=== PATIENT | male | born 1935 | race Caucasian/White ===

== ENCOUNTER 2019-01-26 09:53 | Day surgery (SDC) | payer OTHER ==
[~2019-01-26] VITALS: Ht 175.3 cm; Wt 88.0 kg
[~2019-01-26 09:53] MED LIST: ceFAZolin SODIUM 2 GM in NS 100 ML IV ONE
[2019-01-26] MEDS ORDERED: IOHEXOL 50 ML IV ONE (11:00)
[2019-01-26] MEDS ORDERED: fentaNYL CITRATE/PF 100 MCG/2 ML AMP IVP ONE (13:00)
[2019-01-26] MEDS ORDERED: SUGAMMADEX SODIUM 200 MG/2 ML VIAL IV ONE (13:00)
[2019-01-26] MEDS ORDERED: MIDAZOLAM HCL 5 MG/5 ML VIAL IVP ONE (13:00)
[2019-01-26] MEDS ORDERED: NS IRRIG SOLN 1000 ML IR ONE (13:00)
[2019-01-26] MEDS ORDERED: CEFAZOLIN 2 GM IVPB PREMIX 50 ML IV ONE (13:00)
[2019-01-26] MEDS ORDERED: fentaNYL CITRATE 250 MCG/5 ML AMP IV ONE (13:00)
[2019-01-26] MEDS ORDERED: LR 1,000 ML IV.SOLN IV ONE (13:00)
[2019-01-26] MEDS ORDERED: SEVOFLURANE 15 MIN GAS INH ONE (13:00)
[2019-01-26] MEDS ORDERED: PROPOFOL 200MG/ 20ML VIAL (DIPRIVAN) IV ONE (13:00)
[2019-01-26] MEDS ORDERED: BUPIVACAINE /EPINEPHRINE/PF 0.5% 30 ML VIAL INJ ONE (13:00)
[2019-01-26] MEDS ORDERED: NS 1000 ML IV.SOLN IV ONE (13:00)
[2019-01-26] MEDS ORDERED: ATROPINE SULFATE 0.4 MG/ML VIAL IVP ONE (13:00)
[2019-01-26] MEDS ORDERED: ROCURONIUM BROMIDE 10 MG/ML (ZEMURON) IV ONE (13:00)
[2019-01-26] MEDS ORDERED: KETOROLAC TROMETHAMINE 30 MG VIAL IVP ONE (13:00)
[2019-01-26] MEDS ORDERED: ONDANSETRON HCL 4 MG/2 ML VIAL IVP ONE (13:00)
[2019-01-26] MEDS ORDERED: DEXAMETHASONE SOD PHOSPHATE 4 MG/ML VIAL IVP ONE (13:00)
[2019-01-26] MEDS ORDERED: LR 1,000 ML IV SCH (14:19)
[2019-01-26] MEDS ORDERED: HYDROmorphone 1 MG INJ. 1 MG/ML AMPUL IVP PRN (14:30)
[2019-01-26] MEDS ORDERED: MEPERIDINE HCL/PF 25 MG/ML DISP.SYRIN IVP PRN (14:30)
[2019-01-26] MEDS ORDERED: HYDROmorphone 2 MG/ML VIAL IVP PRN ×2 (14:30)
[2019-01-26 16:25] VITALS: BP_SYST 114
[2019-01-26] MEDS ORDERED: HYDROcodone/ACETAMIN 5-325 MG TAB (NORCO/ VICODIN) PO PRN (16:30)
[2019-01-26 16:40] VITALS: BP_SYST 125
[2019-01-26] MEDS ORDERED: DORZ10DR9 EACH EYE (17:22)
[2019-01-26] MEDS ORDERED: XALEYE BOTH EYES (17:22)
[2019-01-26] MEDS ORDERED: COMBIGAN BOTH EYES (17:22)
[2019-01-26] MEDS: METOCLOPRAMIDE HCL 10 MG/2 ML VIAL IVP SCH (17:29)
[2019-01-26] MEDS ORDERED: COMMUNICATION ORDER XX ONE (18:15)
[2019-01-26] MEDS: ceFAZolin SODIUM 2 GM in D5W 50 ML IV SCH ×2 (18:28→22:13)
[2019-01-26 19:50] VITALS: BP_SYST 115
[2019-01-26] MEDS: HYDROcodone/ACETAMIN 5-325 MG TAB (NORCO/ VICODIN) PO PRN (20:01)
[2019-01-26] MEDS ORDERED: LATANOPROST 2.5 ML DROPS (XALATAN) BOTH EYES SCH (21:00)
[2019-01-26] MEDS: COMBIGAN OPTH OP SCH (21:00)
[2019-01-26] MEDS ORDERED: BRIMONIDINE TAR. 0.2%/TIMOLOL 0.5% EYE DROPS 5 ML BOTH EYES SCH (21:00)
[2019-01-26] MEDS ORDERED: CEFAZOLIN 2 GM IVPB PREMIX 100 ML IV ONE (21:50)
[2019-01-27] MEDS: METOCLOPRAMIDE HCL 10 MG/2 ML VIAL IVP SCH ×3 (00:06→12:23)
[2019-01-27 02:27] VITALS: BP_SYST 127
[2019-01-27] MEDS: ceFAZolin SODIUM 2 GM in D5W 50 ML IV SCH ×2 (05:53→14:30)
[2019-01-27 08:28] VITALS: BP_SYST 136
[2019-01-27] MEDS: COMBIGAN OPTH OP SCH ×2 (08:48→08:55)
[2019-01-27] MEDS: HYDROcodone/ACETAMIN 5-325 MG TAB (NORCO/ VICODIN) PO PRN (08:51)
[2019-01-27 11:31] VITALS: BP_SYST 113
[2019-01-27] MEDS ORDERED: HYDR-4272 PO (14:08)
[2019-01-27 15:46] VITALS: BP_SYST 133
== END 2019-01-27 16:10 | disposition home or self-care (01) ==
LOC: SDS 09:53 → SMU 09:54 → SDS 01-27 16:10
PROVIDERS: ATTEND Surgery
DX: K80.10 Calculus of gallbladder with chronic cholecystitis without obstruction (principal); K66.0 Peritoneal adhesions (postprocedural) (postinfection); H40.9 Unspecified glaucoma
CPT/HCPCS: 47563; 74300; 87081; 88304; C1727; C1758; C9399; J0461; J0690 ×2; J1100; J1885; J2250; J2405; J2704; J2765 ×2; J3010 ×2; J3490; J7030; J7060; J7120; Q9967; 76000